=== PATIENT | male | born 1955 | race Caucasian/White ===

== ENCOUNTER → 2016-07-21 | Day surgery (SDC) | payer BC ==
[~2016-07-21] MED LIST: BUPIVACAINE/EPINEPHRINE 0.5% PF 30 ML VIAL ONE; KETOROLAC TROMETHAMINE 30 MG/ML (IVP) VIAL IV PUSH ONE; LACTATED RINGER'S 1,000 ML BAG IV ONE; ONDANSETRON HCL 4 MG/2 ML VIAL IV PUSH ONE; PROPOFOL 100 MG/10 ML INJ IV ONE; ceFAZolin 2 GM PREMIX 50 ML ONE
--- NOTE | 2016-07-21 17:03 | TN ---
cc: MANUEL PABLO DATE OF SURGERY: 07/21/2016 PREOPERATIVE DIAGNOSIS Internal derangement right knee. POSTOPERATIVE DIAGNOSIS 1. Complex tear posterior medial meniscus, right knee. 2. Osteoarthritis right knee, medial compartment. SURGEON Manuel Pablo ANESTHESIA TIVA. BLOOD LOSS Minimal. PROCEDURE: 1. Arthroscopy right knee. 2. Arthroscopic medial meniscectomy. 3. minor abrasion chondroplasty medial femoral condyle. SURGEON Manuel Pablo ANESTHESIA General. BLOOD LOSS Minimal. INDICATION This patient is a 61 old male with catching, locking and pain especially on medial aspect of the right knee. Investigative studies show evidence of a torn medial meniscus. He presents for surgical treatment. PROCEDURE The patient brought to the operating room SI supine position with a right leg was scrubbed alcohol followed by Hibiclens and draped sterilely. Antibiotics were given within 1 hour time window a time-out was done. Inflow established anterior and laterally. There was an effusion that was drained. The suprapatellar pouch was unremarkable. The retropatellar surface showed minimal changes. There was no loose articular cartilage. The medial and lateral gutters were free of any loose bodies. The medial compartment showed evidence of a parrot beak type tear at approximately the 2 o'clock position. There was delamination of the meniscus extending around the posterior horn with a horizontal tear. The medial compartment showed a loose articular cartilage in the medial femoral condyle. The lateral portion of it. The ACL was normal lateral compartment showed minimal degenerative changes of the lateral meniscus. That compartment otherwise was normal. A separate incision was made anterior and medially using a spinal needle for localization. Straight and angled punches were used to take meniscus back to stable rim. A debrider was utilized and the meniscus was debrided back to stable rim from the posterior horn to approximately the 3 o'clock position. A probe was used to probe the rest of this, and the rest of this was quite stable. The wound was irrigated copiously. Hemostasis was controlled. There was of a fairly large varicose vein that was having some bleeding. We closed with interrupted 3-0 nylon followed by sterile dressing and the patient awakened and taken to recovery in satisfactory condition. Manuel Pablo MD [facility] [place]/jamie /1:31 PM /5:00 PM
== END | disposition home or self-care (01) ==
LOC: ESDC 11:01
PROVIDERS: ATTEND Orthopaedic Surgery Orthopaedic Surgery of the Spine
DX: S83.231A Complex tear of medial meniscus, current injury, right knee, initial encounter (principal); M17.11 Unilateral primary osteoarthritis, right knee
CPT/HCPCS: 01400; 29881; J0690; J1885; J2405; J3010; J7120